=== PATIENT | male | born 1945 ===

== ENCOUNTER 2024-10-17 10:47 | Day surgery (SDC) | payer OTHER ==
[~2024-10-17] VITALS: Ht 177.8 cm; Wt 81.9 kg
[2024-10-17] MEDS ORDERED: LOSA50 PO (11:01)
[2024-10-17] MEDS ORDERED: Aspir 8181 MG (11:02)
[2024-10-17 12:14] VITALS: BP 128/67
== END 2024-10-17 12:07 | disposition home or self-care (01) ==
LOC: ORSCSDS 10:47
PROVIDERS: Internal Medicine Gastroenterology
PROC: 0DB68ZX Excision of Stomach, Via Natural or Artificial Opening Endoscopic, Diagnostic (ICD-10-PCS; principal; 2024-10-17 13:45)
DX: R13.10 Dysphagia, unspecified (principal); R14.2 Eructation; R14.0 Abdominal distension (gaseous); R19.4 Change in bowel habit; Z79.82 Long term (current) use of aspirin; Z79.899 Other long term (current) drug therapy
CPT/HCPCS: 88305; 88341; 88342; J2704; J7120